=== PATIENT | female | born 1980 | race Caucasian/White ===

== ENCOUNTER 2023-05-26 15:43 | Outpatient (AMB) | payer OTHER, SELFPAY ==
--- NOTE | 2023-05-26 16:12 | MHC.OFFWIV ---
Intake Vital Signs 05/26/23 16:15 Weight 162 lb BP 130/100 H Blood Pressure Location Lt brachial Position Sitting Pulse 98 Pulse Source Pulse Oximeter Pulse Oximetry (%) 97 Oxygen Delivery Method Room Air Intake Visit Reasons: EP;Ear Pain Both (waiting Rm) Intake Note: Patient here for bilat ear pain. she went to ED on 05/15 and was given antibiotics. pt states she can hear but everything is muffled. Patient Tobacco Use Status: Current everyday Tobacco user Allergies No Known Allergies Allergy (Verified 05/27/23 06:10) Medication List - Last Reconciled 05/27/23 by Kei Saenz MD clonazepam 0.5 mg PO BID PRN hydroxyzine pamoate 25 mg PO BID meloxicam 15 mg PO DAILY odppqtlx-bzmcznxvh-RC 3.5-10,000-1 mg/mL-unit/mL-% 4 drps otic (ears) Q8H venlafaxine ER 150 mg PO DAILY Do you need a note to return to daycare/school/sports/work: Yes HPI EP;Ear Pain Both (waiting Rm) HPI Details 43-year-old female presents to the office for a sick visit. Patient was seen in the emergency last week for bilateral ear infection. She was given Augmentin. Patient completed her last medication yesterday. Continues to have pain in both her ears. Reporting swelling and discomfort in front of the ears bilaterally. [facility] Medical History (Updated 05/27/23 @ 06:22 by Kei Saenz MD) Generalized anxiety disorder Lymphadenopathy of right cervical region Mixed anxiety and depressive disorder Surgical History (Updated 07/31/22 @ 12:06 by Meron Lanier MD) History of partial hysterectomy History of tubal ligation Family History Sister Mental health disorder Mother Mental health disorder Essential hypertension Diabetes mellitus Father Essential hypertension Social History Housing: House Patient Tobacco Use Status: Current everyday Tobacco user e-Cigarette/Vaping Use: Never Used service: No Current occupational status: employed Cognitive needs: No Hearing needs: No Vision needs: No Physical Exam Vital Signs: Last Vital Signs Pulse 98 05/26/23 16:15 BP 130/100 H 05/26/23 16:15 Pulse Ox 97 05/26/23 16:15 Oxygen Delivery Method Room Air 05/26/23 16:15 Const General: cooperative and healthy appearing Nutritional Appearance: well nourished Orientation/consciousness: patient oriented x3 Limitations: no limitations HEENT Other: Right and left ear: Ear canal is swollen, tympanic membrane is not visualized. The tragus section of the external ear bilaterally is slightly swollen and tender. Head: Yes normal to inspection Eyes General: appearance normal, both eyes and all related structures Neck Neck: Yes normal visual inspection Chest Chest palpation & inspection: normal palpation of entire chest wall Resp Effort & Inspection: normal respiratory effort Neuro General: patient oriented x3 Assessment & Plan Assessment & Plan (1) Otitis externa of both ears: Code(s): H60.93 - Unspecified otitis externa, bilateral Plan: Ear drops and meloxicam ordered. If symptoms do not improve to follow-up here. Medications: New baznuwuj-nxkmzwsbs-ZJ 3.5-10,000-1 mg/mL-unit/mL-% 4 drps otic (ears) Q8H 10 mL 0RF meloxicam 15 mg PO DAILY 14 tabs 0RF Coding Level of Care Code Est Pt Level 3 (65582) Diagnoses Otitis externa of both ears H60.93
[2023-05-26 16:15] VITALS: BP 130/100; PULSE 98; O2SAT 97
== END 2023-05-26 16:37 | disposition home or self-care (01) ==
PROVIDERS: PCP Internal Medicine; Visit Provider Internal Medicine
DX: H60.93 Unspecified otitis externa, bilateral (principal)
CPT/HCPCS: 99213

== ENCOUNTER → 2023-12-11 13:09 | Outpatient (BNVA) | payer SELFPAY | PROVIDERS: PCP Internal Medicine | DX: Z13.89 Encounter for screening for other disorder (principal); Z02.89 Encounter for other administrative examinations | CPT/HCPCS: 86481; 86706; 86735; 86762; 86765; 86787 ==